=== PATIENT | female | born 1950 | race Caucasian/White ===

== ENCOUNTER 2021-03-03 15:49 | Emergency (ER) | payer SELFPAY ==
[2021-03-03] MEDS ORDERED: Ketorolac Tromethamine 60 MG/2 ML VIAL ONE (16:52)
[2021-03-03] MEDS ORDERED: Cyclobenzaprine 10 MG TAB ONE (16:52)
== END 2021-03-03 17:02 | disposition home or self-care (01) ==
LOC: MADERS 15:49
DX: S39.82XA Other specified injuries of lower back, initial encounter (principal); I10 Essential (primary) hypertension; Z87.891 Personal history of nicotine dependence; X50.1XXA Overexertion from prolonged static or awkward postures, initial encounter
CPT/HCPCS: 96372; 99283; J1885